=== PATIENT | male | born 1950 | race Caucasian/White ===

== ENCOUNTER 2016-09-07 13:28 | Emergency (ER) | payer SELFPAY ==
[~2016-09-07 13:28] MED LIST: ATAC16TA4 PO; FLON0.053
[2016-09-07 13:29] VITALS: BP 211/130; PULSE 106; RESP 20; TEMP 98.3; O2SAT 98
[2016-09-07] MEDS ORDERED: ALEN1TAB48 PO (14:06)
[2016-09-07] MEDS ORDERED: CYCL5TAB PO (14:06)
[2016-09-07] MEDS ORDERED: TRAM50TA PO (14:06)
[2016-09-07] MEDS ORDERED: FLUT50SP EACH NARE (14:06)
[2016-09-07] MEDS ORDERED: CALC1TAB55 PO (14:06)
[2016-09-07] MEDS ORDERED: ATAC16TA PO (14:06)
[2016-09-07] MEDS ORDERED: GABA300C5 PO (14:38)
--- NOTE | 2016-09-07 14:39 | PD ---
HPI Chief Complaint: Musculoskeletal Complaint Time Seen by Provider: 14:15 Travel History International Travel<30 days: No Contact w/Intl Traveler<30days: No Traveled to known affect area: No History of Present Illness HPI Patient is a 66-year-old male presents emergency Department with complaint of black back and leg pain. Patient states that he has a history of chronic pain in the left low back that radiates down the left leg. He was seen by Dr. Stanton of neurology early this in August and had an MRI of the lumbar spine performed, patient does not have the results of this yet. He has been managed on Ultram, Flexeril, which states that helps his pain, but it seems to be worsening over the last week. He has not been having to emulate with a cane, which she has never had to do historically due to pain made worse with walking. He has not had any muscular weakness however. PFSH Past Medical History Cardiovascular Problems: Yes (HTN) High Cholesterol: Yes Diminished Hearing: No Hypertension: Yes Tetanus Vaccination: Unknown Influenza Vaccination: Yes Past Surgical History Surgical History: No Previous Surgery Social History Alcohol Use: No Tobacco Use: No Substance Use: No Allergies-Medications (Allergen,Severity, Reaction): Coded Allergies: No Known Allergies (Unverified , 09/07/16) Reported Meds & Prescriptions Reported Meds & Active Scripts Active Reported Flexeril (Cyclobenzaprine HCl) 5 Mg Tab 5 Mg PO BID Tramadol (Tramadol HCl) 50 Mg Tab 50 Mg PO Q6H PRN Calcium 500 +D3 (Calcium Carbonate-Cholecalciferol) 500-600 Mg-Unit Tab 2 Tab PO DAILY Fluticasone Nasal [place] 50 Mcg/Act Naspr 50 Mcg EACH NARE BID 50 mcg/spray [place] (Candesartan Cilexetil) 16 Mg Tab 16 Mg PO DAILY Alendronate (Alendronate Sodium) 70 Mg Tab 70 Mg PO Q7D Review of Systems Except as stated in HPI: all other systems reviewed are Neg Physical Exam Narrative GENERAL: Well-appearing male in no acute distress SKIN: Focused skin assessment warm/dry. HEAD: Normocephalic. EYES: No scleral icterus. No injection or drainage. ENT: Mucous membranes pink and moist. NECK: Supple CARDIOVASCULAR: Regular rate and rhythm. RESPIRATORY: No accessory muscle use. GASTROINTESTINAL: Abdomen soft, non-tender, nondistended. MUSCULOSKELETAL: No midline tenderness to palpation of the thoracic or lumbar spine. Reproducible slight pain over the left sacroiliac joint when palpated. 5 out of 5 strength in the bilateral upper, lower extremities. Good distal sensation, pulses. No skin lesions to suspect herpes zoster. NEUROLOGICAL: Awake and alert. Ambulates normally with cane, no antalgic gait, good reflexes bilateral lower extremities. Normal speech. PSYCHIATRIC: Appropriate mood and affect; insight and judgment normal. Data Data Last Documented VS Vital Signs Date Time Temp Pulse Resp B/P Pulse Ox O2 Delivery O2 Flow Rate FiO2 09/07/16 13:29 98.3 106 20 211/130 98 Room Air MDM Medical Decision Making Medical Screen Exam Complete: Yes Emergency Medical Condition: Yes Medical Record Reviewed: Yes Differential Diagnosis 66-year-old male with acute on chronic low back pain radiating to left leg and hip. Differential includes acute on chronic pain, fracture, disc herniation, radiculopathy, sciatica. Narrative Course Patient had MRI performed earlier this month. It is [facility]. MRI of the lumbar spine showed central to left-sided protrusion at L2-L3 compromising the traversing left L3 nerve root with mild stenosis. Worsened when compared with previous examination. Extraforaminal protrusion at L4-L5 compromising the exiting right L4 nerve root. Patient describes a neuropathic-type take pain with a burning sensation. He does not have any focal neurologic weakness to warrant neurosurgical evaluation emergently. Patient will be discharged home with institution of gabapentin, given single-dose [place] here. Diagnosis Primary Impression: Lumbosacral radiculopathy at L3 Referrals: Max Stanton MD 2 days Additional Instructions: Continue home medications as prescribed. Gabapentin as prescribed. Follow-up with neurologist by phone on Friday as discussed, continue to keep appointment unless he wants to move this up sooner. Med/Other Pt SpecificInfo: Prescription(s) given Scripts Gabapentin 300 Mg Kin264 Mg PO TID #90 CAP Ref 0 Prov:Diane Herbert MD 09/07/16 Disposition: 01 DISCHARGE HOME Condition: Stable Diane Herbert MD September 07, 2016 14:38
[2016-09-07] MEDS ORDERED: ACETAMINOPHEN/HYDROcodone 325 MG/5 MG TAB PO ONE (14:45)
== END 2016-09-07 15:22 | disposition home or self-care (01) ==
LOC: MERGE 13:28 → NEPC 13:28
DX: M54.17 Radiculopathy, lumbosacral region (principal); I10 Essential (primary) hypertension; E78.00 Pure hypercholesterolemia, unspecified
CPT/HCPCS: 99283

== ENCOUNTER 2017-09-27 08:08 | Emergency (ER) | payer MEDICARE ==
[~2017-09-27] VITALS: Ht 185.4 cm; Wt 93.0 kg
[~2017-09-27 08:08] MED LIST changes: +ALEN1TAB48 PO; +ATAC16TA PO; -ATAC16TA4 PO; +BIFI1CAP; +CYCL5TAB PO; -FLON0.053; +FLUT50SP EACH NARE; +GOTU435C; +OMEGCAP PO; +TRAM50TA PO; +VITA250T3 PO
[2017-09-27 08:10] VITALS: BP 181/99; PULSE 76; RESP 19; TEMP 97.7; O2SAT 96
--- NOTE | 2017-09-27 08:36 | PD ---
HPI Chief Complaint: Injury Time Seen by Provider: 08:30 Travel History International Travel<30 days: No Contact w/Intl Traveler<30days: No Traveled to known affect area: No History of Present Illness HPI 67-year-old male with history of hypertension presents emergency department for evaluation of left fifth toe pain. Patient states he struck it on a table and believes he may have dislocated. This happened last evening. He states pain is moderate, constant. Exacerbated with walking or weightbearing. It does not radiate anywhere. He denies any alterations in sensation. He has no other symptoms to report. PFSH Past Medical History Cardiovascular Problems: Yes (HTN) High Cholesterol: Yes Diminished Hearing: No Hypertension: Yes Social History Alcohol Use: No Tobacco Use: No Substance Use: No Allergies-Medications (Allergen,Severity, Reaction): Coded Allergies: No Known Allergies (Unverified Allergy, Unknown, 02/21/17) Reported Meds & Prescriptions Reported Meds & Active Scripts Active Ibuprofen 600 Mg Tab 600 Mg PO Q8H PRN Reported Alendronate (Alendronate Sodium) 70 Mg Tab 70 Mg PO Q7D Digestive Probiotic (Bifidobacterium Infantis) 1.5 Billion Cell Capsule Maiau Nicolas Herb (Gotu Nicolas) 435 Mg Capsule Vitamin C (Ascorbic Acid) 250 Mg Tab 250 Mg PO [place]-3 Fish Oil/Vitamin (Fish Oil-Cholecalciferol) 1,000-1,000 Mg Cap 1 Cap PO DAILY Flexeril (Cyclobenzaprine HCl) 5 Mg Tab 5 Mg PO BID Tramadol (Tramadol HCl) 50 Mg Tab 50 Mg PO Q6H PRN Fluticasone Nasal [place] 50 Mcg/Act Naspr 50 Mcg EACH NARE BID 50 mcg/spray [place]and (Candesartan Cilexetil) 16 Mg Tab 16 Mg PO DAILY Review of Systems Except as stated in HPI: all other systems reviewed are Neg Physical Exam Narrative GENERAL: Well-nourished, well-developed male patient in no acute distress SKIN: Focused skin assessment warm/dry. Ecchymosis of the left fifth toe with mild edema. No deformity. Cap refill within normal limits. HEAD: Normocephalic. EYES: No scleral icterus. No injection or drainage. NECK: Supple, trachea midline. No JVD or lymphadenopathy. CARDIOVASCULAR: Regular rate and rhythm without murmurs, gallops, or rubs. RESPIRATORY: Breath sounds equal bilaterally. No accessory muscle use. GASTROINTESTINAL: Abdomen soft, non-tender, nondistended. MUSCULOSKELETAL: No cyanosis BACK: Nontender without obvious deformity. No CVA tenderness. Data Data Last Documented VS Vital Signs Date Time Temp Pulse Resp B/P (MAP) Pulse Ox O2 Delivery O2 Flow Rate FiO2 09/27/17 08:10 97.7 76 19 181/99 (126) 96 Orders Orders Toe (Min 2vws) (09/27/17 ) Ed Discharge Order (09/27/17 09:45) ^ Other Nursing Orders (09/27/17 09:45) MDM Medical Decision Making Medical Screen Exam Complete: Yes Emergency Medical Condition: Yes Medical Record Reviewed: Yes Differential Diagnosis Contusion versus fracture versus sprain versus dislocation Narrative Course 67-year-old male presents emergency department for evaluation of left fifth toe pain. Patient appears without distress. The toe is bruised. X-ray imaging confirms a fracture of the left fifth toe. It is william taped to the fourth toe. Patient is counseled on care, encouraged follow-up with podiatry. He agrees to return immediately with acute worsening symptoms. Diagnosis Primary Impression: Fracture of fifth toe, left, closed Qualified Codes: S92.502A - Displaced unspecified fracture of left lesser toe( s), initial encounter for closed fracture Referrals: [facility] Primary Care Physician Patient Instructions: General Instructions, Toe Fracture (ED) Additional Instructions: William tape the toes. Change the tape daily for 6 weeks Follow-up with a steam bone press tender in the next week Return immediately with acute worsening of symptoms Med/Other Pt SpecificInfo: Prescription(s) given Scripts Ibuprofen (Ibuprofen) 600 Mg Tab 600 MG PO Q8H Y for PAIN, #30 TAB 0 Refills Prov: Mamta Pandya 09/27/17 Disposition: 01 DISCHARGE HOME Condition: Stable Mamta Pandya Sep 27, 2017 08:36
--- NOTE | 2017-09-27 09:39 | RADRPT ---
EXAM DATE: 09/27/2017 9:34 AM EDT AGE/SEX: 67 years / Male INDICATIONS: Left foot fifth digit pain, hit foot on the fridge CLINICAL DATA: This is the patient's initial encounter. Patient reports that signs and symptoms have been present for 1 day and indicates a pain score of 0/10. MEDICAL/SURGICAL HISTORY: None. None. COMPARISON: No prior exams available for comparison. FINDINGS: There is a transverse slightly displaced fracture through the proximal phalanx fifth digit shaft. No other fractures are seen. CONCLUSION: Fifth proximal phalanx fracture. Electronically signed by: Alejandro Macias MD 09/27/2017 9:37 AM EDT
[2017-09-27] MEDS ORDERED: IBUP-232 PO (09:47)
== END 2017-09-27 10:03 | disposition home or self-care (01) ==
LOC: NEPD 08:08
DX: S92.502A Displaced unspecified fracture of left lesser toe(s), initial encounter for closed fracture (principal); I10 Essential (primary) hypertension; W22.03XA Walked into furniture, initial encounter; Y93.01 Activity, walking, marching and hiking; Y92.009 Unspecified place in unspecified non-institutional (private) residence as the place of occurrence of the external cause
CPT/HCPCS: 73660; 99283